=== PATIENT | female | born 1985 | race Caucasian/White ===

== ENCOUNTER → 2017-09-26 | Outpatient (CLI) | payer SELFPAY ==
--- NOTE | 2017-09-26 17:29 | ECHOF ---
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.1 congenital aortic valve insufficiency MEASUREMENTS -------- HEIGHT: 170.2 cm WEIGHT: 68.0 kg BP: IVSd: 1.1 cm (0.6 - 1.1) LVIDd: 4.9 cm (3.9 - 5.3) LVPWd: 0.9 cm (0.6 - 1.1) IVSs: 1.2 cm LVIDs: 3.7 cm LVPWs: 1.1 cm LA Diam: 2.8 cm (2.7 - 3.8) LAESV Index (A-L): 27.49 ml/m Ao Diam: 2.7 cm (2.0 - 3.7) AV Cusp: 1.7 cm (1.5 - 2.6) LA Diam: 3.2 cm (2.7 - 3.8) MV EXCURSION: 23.991 mm (> 18.000) MV EF SLOPE: 213 mm/s (70 - 150) EPSS: 0.5 cm MV E Theron: 1.11 m/s MV DecT: 159 ms MV A Theron: 0.56 m/s MV E/A Ratio: 1.99 AV maxP.19 mmHg AV meanP.75 mmHg RAP: 5.00 mmHg RVSP: 19.26 mmHg FINDINGS -------- Sinus rhythm. This was a technically good study. LV size, wall thickness and systolic function are normal, with an EF greater than 55%. The left risa tricular size is normal. The right ventricle is normal in size. The left atrial size is normal. The right atrial size is normal. Peak/mean gradient across the Aortic Valve is 16.19mmHg / 8.75mmHg. Aortic valve is functionally bi cuspid and is mildly thickened. Mild mitral annular calcification present. Mild mitral regurgitation is present. Mild tricuspid regurgitation present. There is no evidence of pulmonary hypertension. The right v entricular systolic pressure, as measured by Doppler, is 19.26mmHg. There is no pulmonic regurgitation present. The aortic root size is normal. There is no pericardial effusion. CONCLUSIONS -------- 1. LV size, wall thickness and systolic function are normal, with an EF greater than 55%. 2. The left ventricular size is normal. 3. Peak/mean gradient across the Aortic Valve is 16.19mmHg / 8.75mmHg. 4. Aortic valve is functionally bicuspid and is mildly thickened. 5. Mild mitral annular calcification present. 6. Mild mitral regurgitation is present. 7. Mild tricuspid regurgitation present. 8. There is no evidence of pulmonary hypertension. 9. The right ventricular systolic pressure, as measured by Doppler, is 19.26mmHg. 10. There is no pulmonic regurgitation present. 11. The aortic root size is normal. 12. There is no pericardial effusion. PARARESCUE CRAFTSMAN: Tanya Ames RDCS
== END | disposition home or self-care (01) ==
LOC: RADECHMAIN 11:21
PROVIDERS: ATTEND Nurse Practitioner
DX: I08.3 Combined rheumatic disorders of mitral, aortic and tricuspid valves (principal)
CPT/HCPCS: 93306

== ENCOUNTER → 2018-06-12 | Outpatient (CLI) | payer OTHER ==
--- NOTE | 2018-06-12 08:53 | US ---
EXAMINATION TYPE: US thyroid st tissue head/neck DATE OF EXAM: 06/12/2018 COMPARISON: NONE CLINICAL HISTORY: R94.6 abnormal results of thyroid. GLAND SIZE: Right Lobe: 4.8 x 1.6 x 1.6 cm Overall Parenchyma: grossly heterogeneous Left Lobe: 4.7 x 1.4 x 1.6 cm Overall Parenchyma: grossly heterogeneous Isthmus Thickness: 0.6 cm NODULES RIGHT: # of nodules measured on right: 0 LEFT: # of nodules measured on left: 0 ISTHMUS: # of nodules measured in the isthmus: 0 Bilateral neck scanned, no evidence of lymphadenopathy. IMPRESSION: Nonspecific glandular heterogeneity. Otherwise unremarkable study.
== END | disposition home or self-care (01) ==
LOC: RADUSWWP 08:03
PROVIDERS: ATTEND Family Medicine
DX: E07.9 Disorder of thyroid, unspecified (principal)
CPT/HCPCS: 76536